=== PATIENT | female | born 1975 | race African-American/Black ===

== ENCOUNTER 2019-06-19 08:55 | Day surgery (SDC) | payer OTHER ==
[2019-06-18 13:39] VITALS: BMI 20.5
[2019-06-19] MEDS ORDERED: ACETAMINOPHEN 1000 MG/100 ML VIAL (NON FORMULARY) IVPB ONE (11:26)
--- NOTE | 2019-06-19 11:27 | HP ---
History & Physical Update - History History: No Change - Physical Physical: No Change - Assessment Assessment: No Change - Plan Plan: No Change
[2019-06-19] MEDS ORDERED: IBUPROFEN 800 MG/8 ML IJ IVPB SCH ×2 (11:30→12:38)
[2019-06-19] MEDS ORDERED: DEXTROSE 5%-0.45% SALINE 1,000 ML IV SCH (11:30)
[2019-06-19] MEDS ORDERED: BOTULINUM TOXIN A 100 UNITS VIAL IM ONE (12:00)
[2019-06-19] MEDS ORDERED: ONDANSETRON 4 MG/2 ML VIAL IVPUSH PRN (12:36)
[2019-06-19] MEDS ORDERED: oxyCODONE HCL 5 MG TABLET PO PRN (12:36)
[2019-06-19] MEDS ORDERED: LACTATED RINGERS SOLUTION 1,000 ML IV SCH (12:45)
[2019-06-19] MEDS ORDERED: MIDAZOLAM HCL 2 MG/2 ML SINGLE DOSE VIAL ONE (12:54)
[2019-06-19] MEDS ORDERED: PROPOFOL 20 ML ONE ×2 (12:54→13:02)
[2019-06-19] MEDS ORDERED: ceFAZolin SODIUM 1 GM VIAL IVPB ONE (13:05)
[2019-06-19] MEDS ORDERED: ceFAZolin SODIUM 1 GM VIAL ONE (13:05)
[2019-06-19 14:36] VITALS: TEMP 97.7
[2019-06-19 16:40] VITALS: BP 99/75; PULSE 93
--- NOTE | 2019-06-21 16:32 | OP ---
DATE OF OPERATION: 06/19/2019 PREOPERATIVE DIAGNOSIS: Urge urinary incontinence. POSTOPERATIVE DIAGNOSIS: Urge urinary incontinence. PROCEDURE: Cystoscopy, intravesical injection of Botox A. SURGEON: Eloy Doherty MD NUCLEAR MEDICINE PHYSICIAN: None. ANESTHESIA: General. FINDINGS: Normal bladder. PREOPERATIVE INDICATIONS: Patient is a 43-year-old female with urge urinary incontinence. She comes for Botox injection. DESCRIPTION OF PROCEDURE: The patient was brought to the OR, placed on the table in supine position. Given general anesthesia and IV antibiotics and placed in the modified lithotomy position. The groin was prepped and draped sterilely. Cystoscopy was performed. The urethra was normal. The trigone also appeared to be normal. There was clear efflux bilaterally, and the bladder itself appeared unremarkable, 100 units of Botox A were injected in 20 separate injections along the trigone and the posterior aspect of the bladder muscle. The bladder was then emptied. The patient was woken up. Angela [id number]
== END 2019-06-19 15:55 | disposition home or self-care (01) ==
LOC: JASU-SURG 08:55
PROVIDERS: ATTEND Urology
PROC: 3E0K8GC Introduction of Other Therapeutic Substance into Genitourinary Tract, Via Natural or Artificial Opening Endoscopic (ICD-10-PCS; principal; 2019-06-19 11:00)
DX: N39.41 Urge incontinence (principal)
CPT/HCPCS: 36415; 84703; 94760